=== PATIENT | female | born 1975 | race Caucasian/White ===

== ENCOUNTER 2021-02-27 14:43 | Emergency (ER) | payer OTHER ==
[~2021-02-27] VITALS: Ht 165.1 cm; Wt 86.2 kg
[2021-02-27] MEDS ORDERED: Percocet 5-3251 EACH PO (18:31)
[2021-02-27] MEDS ORDERED: ONDA4 PO (18:31)
== END 2021-02-27 19:17 | disposition home or self-care (01) ==
LOC: ER 14:43
DX: S82.842A Displaced bimalleolar fracture of left lower leg, initial encounter for closed fracture (principal); S93.05XA Dislocation of left ankle joint, initial encounter; F17.200 Nicotine dependence, unspecified, uncomplicated; W01.0XXA Fall on same level from slipping, tripping and stumbling without subsequent striking against object, initial encounter
CPT/HCPCS: 27810; 36415; 73600; 73610; 96374; 96375; 99152; A9270; J2270; J2405; J2704; J7030

== ENCOUNTER 2021-03-01 10:18 | Day surgery (SDC) | payer OTHER ==
[~2021-03-01 10:18] MED LIST: ONDA4 PO; Percocet 5-3251 EACH PO
[2021-03-01] MEDS ORDERED: Percocet 5-3251 EACH (10:36)
--- NOTE | 2021-03-01 10:58 | NUR ---
03/01/21 [id number] Mamta Reed ONE ATTEMPT TO RIGHT HAND, NO FLASH. IV OBTAINED IN LEFT AC.
--- NOTE | 2021-03-01 12:02 | NUR ---
03/01/21 1202 Sushil Arriola 0.1MG EPI ADDED TO 20 ML'S 0.5% MARCAINE TO ACHIEVE SOLUTION OF 0.5% MARCAINE WITH EPI 1:200,000. VERIFIED BY ORSCTYSHAWN AND ORSCJEN
== END 2021-03-01 14:18 | disposition home or self-care (01) ==
LOC: ORSCSDS 10:18
PROVIDERS: Orthopaedic Surgery
PROC: 0QSK04Z Reposition Left Fibula with Internal Fixation Device, Open Approach (ICD-10-PCS; principal; 2021-03-01 11:30)
PROC: 0SSG04Z Reposition Left Ankle Joint with Internal Fixation Device, Open Approach (ICD-10-PCS; principal; 2021-03-01 11:30)
DX: S82.842A Displaced bimalleolar fracture of left lower leg, initial encounter for closed fracture (principal); F17.210 Nicotine dependence, cigarettes, uncomplicated
CPT/HCPCS: A9270; C1713; C1776; J0171; J0690; J1100; J1885; J2250; J2270; J2405; J2704; J3010; J7120